=== PATIENT | female | born 1960 ===

== ENCOUNTER 2020-03-01 12:36 | Day surgery (SDC) | payer OTHER ==
[2020-03-01] MEDS ORDERED: ACETAMINOPHEN 500 MG TABLET (FP) PO ONE (13:00)
[2020-03-01] MEDS ORDERED: diphenhydrAMINE HCL 25 MG CAPSULE (FP) PO ONE (13:00)
[2020-03-01] MEDS ORDERED: methylPREDNISolone NA SUCC 125 MG/2 ML VIAL IVPB ONE (13:00)
[2020-03-01] MEDS ORDERED: RITUXIMAB 1,000 MG in DEXTROSE 5%-WATER - 400 ML IVPB ONE (14:00)
[2020-03-01 16:03] VITALS: TEMP 98.5
[2020-03-01 17:23] VITALS: BP 159/68; PULSE 59
== END 2020-03-01 17:23 | disposition home or self-care (01) ==
LOC: JINFUSION 12:36
PROVIDERS: ATTEND Internal Medicine Rheumatology
DX: M06.9 Rheumatoid arthritis, unspecified (principal)
CPT/HCPCS: 96367; 96413; 96415; J9312

== ENCOUNTER 2020-03-15 05:26 | Day surgery (SDC) | payer OTHER ==
[2020-03-15] MEDS ORDERED: ACETAMINOPHEN 500 MG TABLET (FP) PO ONE (14:00)
[2020-03-15] MEDS ORDERED: methylPREDNISolone NA SUCC 125 MG/2 ML VIAL IVPB ONE (14:00)
[2020-03-15] MEDS ORDERED: diphenhydrAMINE HCL 25 MG CAPSULE (FP) PO ONE (14:00)
[2020-03-15] MEDS ORDERED: RITUXIMAB 1,000 MG in DEXTROSE 5%-WATER - 400 ML IVPB ONE (14:30)
[2020-03-15 17:22] VITALS: TEMP 98.6
[2020-03-15 18:14] VITALS: BP 135/71; PULSE 59
== END 2020-03-15 18:00 | disposition home or self-care (01) ==
LOC: JINFUSION 05:26
PROVIDERS: ATTEND Internal Medicine Rheumatology
DX: M06.9 Rheumatoid arthritis, unspecified (principal); J84.9 Interstitial pulmonary disease, unspecified
CPT/HCPCS: 96375; 96413; 96415; J9312

== ENCOUNTER 2020-09-04 13:49 | Day surgery (SDC) | payer OTHER ==
[2020-09-04] MEDS ORDERED: diphenhydrAMINE HCL 25 MG CAPSULE (FP) PO ONE ×2 (14:00→15:00)
[2020-09-04] MEDS ORDERED: methylPREDNISolone NA SUCC 125 MG/2 ML VIAL IVPB ONE (14:00)
[2020-09-04] MEDS ORDERED: ACETAMINOPHEN 500 MG TABLET (FP) PO ONE (14:00)
[2020-09-04] MEDS ORDERED: RITUXIMAB-ABBS 1,000 MG in DEXTROSE 5%-WATER - 400 ML IVPB ONE (14:30)
[2020-09-04 18:23] VITALS: TEMP 98.6
[2020-09-04 18:31] VITALS: BP 114/71; PULSE 63
== END 2020-09-04 18:37 | disposition home or self-care (01) ==
LOC: JINFUSION 13:49
PROVIDERS: ATTEND Internal Medicine Rheumatology
PROC: 3E043GC Introduction of Other Therapeutic Substance into Central Vein, Percutaneous Approach (ICD-10-PCS; principal; 2020-09-04)
PROC: 3E03305 Introduction of Other Antineoplastic into Peripheral Vein, Percutaneous Approach (ICD-10-PCS; 2020-09-04)
DX: M06.9 Rheumatoid arthritis, unspecified (principal); J84.9 Interstitial pulmonary disease, unspecified
CPT/HCPCS: 96365; 96413; 96415; Q5115

== ENCOUNTER 2020-09-18 07:32 | Day surgery (SDC) | payer OTHER ==
[2020-09-18] MEDS ORDERED: diphenhydrAMINE HCL 25 MG CAPSULE (FP) PO ONE (12:00)
[2020-09-18] MEDS ORDERED: METHYLPREDNISOLONE NA SUCC 100 MG in SODIUM CHLORIDE 50 ML IVPB ONE (12:00)
[2020-09-18] MEDS ORDERED: ACETAMINOPHEN 500 MG TABLET (FP) PO ONE (12:00)
[2020-09-18] MEDS ORDERED: RITUXIMAB-ABBS 1,000 MG in DEXTROSE 5%-WATER - 400 ML IVPB ONE (12:30)
[2020-09-18 16:14] VITALS: TEMP 98.5
[2020-09-18 18:21] VITALS: BP 162/72; PULSE 67
== END 2020-09-18 18:21 | disposition home or self-care (01) ==
LOC: JINFUSION 07:32
PROVIDERS: ATTEND Internal Medicine Rheumatology
DX: M06.9 Rheumatoid arthritis, unspecified (principal); J84.9 Interstitial pulmonary disease, unspecified
CPT/HCPCS: 96375; 96413; 96415; Q5115